=== PATIENT | female | born 1940 | race Hispanic/Latino ===

== ENCOUNTER → 2017-09-11 | Day surgery (SDC) | payer MEDICARE ==
[2017-09-10 11:38] LABS: BASOPHILS % 0.3 % (0.0-1.0); EOSINOPHILS # (AUTO) 0.1 (0.0-0.4); EOSINOPHILS % 1.9 % (0.0-6.0); HEMATOCRIT 37.3 % (34.2-44.1); HEMOGLOBIN 12.3 g/dL (12.0-16.0); LYMPHOCYTES # (AUTO) 2.5 (1.0-3.2); LYMPHOCYTES % 35.9 % (18.0-39.1); MEAN CORPUSCULAR HEMOGLOBIN 31.3 pg (28-32); MEAN CORPUSCULAR VOLUME 94.9 fL (81-99); MONOCYTES # (AUTO) 0.5 (0.2-0.8); MONOCYTES % 7.2 % (4.4-11.3); NEUTROPHILS # (AUTO) 3.8 (2.1-6.9); NEUTROPHILS % 54.6 % (38.7-80.0); PLATELET COUNT 220 x10e3/uL (140-360); RED BLOOD COUNT 3.93 x10e6/uL (3.6-5.1); RED CELL DISTRIBUTION WIDTH 13.3 % (11.7-14.4)
[~2017-09-11] MED LIST: ATENOLOL50 MG PO; CHERATUSSIN AC118 ML PO; FENTANYL CITRATE/PF 100MCG/2 ML INJ ONE; HYOSCYAMINE SULFATE 0.5 MG/ML AMP ONE; JANUVIA100 MG PO; LEVAQUIN500 MG PO; LEVEMIR100 UNIT/1 SQ; LISINOPRIL5 MG PO; LYRICA75 MG PO; MACROBID 100 M100 MG PO; METFORMIN HCL500 M2 PO; MIDAZOLAM HCL 2 MG/2 ML VIAL ONE; NORCO 5-325 TA1 EACH PO; ONDANSETRON HCL INJ 2 MG/ML VIAL ONE; PROAIR HFA INH8.5 GM HHN; PROPOFOL IV EMULSION 10 MG/ML 50 ML VIAL ONE; SIMVASTATIN20 MG PO; TESSALON PERLE100 MG PO; TYLENOL WITH C1 EACH PO; ULTRAM 50MG50 MG PO; ULTRAM50 MG PO; XANAX0.5 MG PO; ZOLOFT25 MG PO
--- NOTE | 2017-09-11 14:54 | Operative Report ---
DATE OF PROCEDURE: September 11, 2017 REFERRING PHYSICIAN: Dr. Caleb Gómez. PROCEDURE PERFORMED: 1. Esophagogastroduodenoscopy with biopsies. 2. Colonoscopy with polypectomy. INDICATIONS FOR ESOPHAGOGASTRODUODENOSCOPY: Upper abdominal pain, exacerbated with meals. INDICATIONS FOR COLONOSCOPY: Colorectal cancer screening, personal history of colon polyps. MEDICATION: Patient was done under MAC. Please see anesthesiologist's note. PROCEDURE: With the patient in the left lateral decubitus position, the flexible fiberoptic Olympus gastroscope was introduced into the esophagus under direct visualization without any difficulty. There was some patchy erythema noted in the distal esophagus. The scope was then advanced with ease into the stomach, and the mucosa overlying the antrum and the body revealed some patchy erythema and low-grade to moderate edema, and biopsies were obtained and sent to stain for H. pylori. Pylorus appeared to be of normal contour and shape, was intubated with ease, and the scope was advanced all the way to the 2nd portion of the duodenum. The scope was then withdrawn slowly. Mucosa overlying the proximal 2nd portion and the duodenal bulb appeared to be within normal limits. The scope was then withdrawn back into the stomach and retroflexed, and the mucosa overlying the fundus and the cardia appeared to be within normal limits. The scope was then straightened out. The scope was subsequently withdrawn. Patient tolerated the procedure well. IMPRESSION: 1. Distal esophagitis. 2. Gastritis biopsied. Biopsies sent to stain for H. pylori. PLAN: Follow up histology. Initiate Protonix 40 mg 1 p.o. q.a.m. a.c. Patient was then turned around and after adequate lubrication of the anal canal, a flexible fiberoptic Olympus colonoscope was inserted into the rectum with ease and advanced all the way to the cecum. It was then withdrawn slowly. Mucosa overlying the cecum appeared to be within normal limits. One polyp was hot biopsied, and polypectomy site was prophylactically hemoclipped in the ascending colon. One polyp was hot biopsied from the transverse colon. Descending grossly appeared to be within normal limits, and then 1 polyp was snared from the sigmoid colon. The scope was then retroflexed into the distal rectum, and the area around the dentate line was examined carefully and appeared to be within normal limits. The scope was then straightened out. It was subsequently withdrawn. Patient tolerated the procedure well. IMPRESSION: 1. Ascending colon polyp hot biopsied, polypectomy site prophylactically hemoclipped. 2. Transverse colon polyp hot biopsied. 3. Sigmoid colon polyp snared. PLAN: Follow up histology. Initiate high-fiber low-fat diet. Initiate high-fiber supplement. Patient might benefit from a followup colonoscopy in 3 to 5 years. Job#: [id number] EV cc:CALEB GÓMEZ MD
== END | disposition home or self-care (01) ==
LOC: OR 10:11
PROVIDERS: ATTEND Internal Medicine Gastroenterology
DX: Z12.11 Encounter for screening for malignant neoplasm of colon (principal); D12.5 Benign neoplasm of sigmoid colon; K29.70 Gastritis, unspecified, without bleeding; K20.9 Esophagitis, unspecified; K59.00 Constipation, unspecified; I10 Essential (primary) hypertension; E11.9 Type 2 diabetes mellitus without complications; Z88.5 Allergy status to narcotic agent; F41.9 Anxiety disorder, unspecified; Z01.810 Encounter for preprocedural cardiovascular examination; Z01.812 Encounter for preprocedural laboratory examination; Z79.84 Long term (current) use of oral hypoglycemic drugs
CPT/HCPCS: 36415 ×2; 43239; 45384; 45385; 82948; 85025; 88305; 88312; 93005; J1980; J2250; J2405; 45378

== ENCOUNTER 2020-06-09 18:17 | Inpatient (IN) | payer MEDICARE ==
[~2020-06-09] VITALS: Ht 165.1 cm; Wt 70.8 kg
[~2020-06-09 18:17] MED LIST changes: -FENTANYL CITRATE/PF 100MCG/2 ML INJ ONE; -HYOSCYAMINE SULFATE 0.5 MG/ML AMP ONE; -MIDAZOLAM HCL 2 MG/2 ML VIAL ONE; -ONDANSETRON HCL INJ 2 MG/ML VIAL ONE; -PROPOFOL IV EMULSION 10 MG/ML 50 ML VIAL ONE
[2020-06-09 19:20] LABS: BASOPHILS % 0.6 % (0.0-1.0); EOSINOPHILS % 0.6 % (0.0-6.0); HEMATOCRIT 30.2 % (34.2-44.1); LYMPHOCYTES # (AUTO) 0.9 (1.0-3.2); LYMPHOCYTES % 25.5 % (18.0-39.1); MEAN CORPUSCULAR HEMOGLOBIN 29.5 pg (28-32); MEAN CORPUSCULAR HGB CONC 33.1 g/dL (31-35); MEAN CORPUSCULAR VOLUME 89.1 fL (81-99); MONOCYTES # (AUTO) 0.2 (0.2-0.8); MONOCYTES % 4.7 % (4.4-11.3); NEUTROPHILS # (AUTO) 2.3 (2.1-6.9); PLATELET COUNT 121 x10e3/uL (140-360); RED BLOOD COUNT 3.39 x10e6/uL (3.6-5.1); RED CELL DISTRIBUTION WIDTH 14.5 % (11.7-14.4)
[2020-06-09 19:34] LABS: ALANINE AMINOTRANSFERASE 42 IU/L (0-55); ALBUMIN 3.2 g/dL (3.5-5.0); ALBUMIN/GLOBULIN RATIO 0.8 (0.8-2.0); ALKALINE PHOSPHATASE 99 IU/L (40-150); ANION GAP 15.3 mmol/L (8-16); BLOOD UREA NITROGEN 9 mg/dL (7-26); BUN/CREATININE RATIO 12 (6-25); CALCIUM 8.7 mg/dL (8.4-10.2); CARBON DIOXIDE 22 mmol/L (22-29); CHLORIDE 105 mmol/L (98-107); CREATINE KINASE 25 IU/L (29-168); CREATININE, SERUM 0.73 mg/dL (0.57-1.11); EST GLOMERULAR FILTRATION RATE > 60 ML/MIN (60-); GLUCOSE 114 mg/dL (74-118); POTASSIUM 3.3 mmol/L (3.5-5.1); SODIUM 139 mmol/L (136-145)
[2020-06-09 20:10] LABS: CLARITY,URINE CLEAR (CLEAR); COLOR,URINE YELLOW (YELLOW); LEUKOCYTE ESTERASE ,URINE NEGATIVE (NEGATIVE); NITRITE,URINE NEGATIVE (NEGATIVE)
[2020-06-09 20:11] LABS: KETONES,URINE TRACE (NEGATIVE); PROTEIN,URINE DIPSTICK 1+ (NEGATIVE); URINE UROBILINOGEN 0.2 mg/dL (0.2 - 1)
[2020-06-09 20:12] LABS: BACTERIA,URINE MODERATE /HPF; CALCIUM OXALATE CRYSTALS,UR MANY (FEW); EPITHELIAL CELLS,URINE MANY /LPF
[2020-06-09] MEDS ORDERED: CEFTRIAXONE SOD 1 GM VIAL IM ONE (21:45)
[2020-06-09] MEDS ORDERED: SODIUM CHLORIDE 0.9% 50ML 50 ML ONE (21:51)
[2020-06-09] MEDS ORDERED: IOPAMIDOL 370 MG/ML 200 ML INFUS..BTL INJ ONE (21:52)
[2020-06-09] MEDS ORDERED: CEFTRIAXONE SOD 1 GM in SODIUM CHLORIDE 0.9% 50ML 50 ML IV ONE (22:00)
[2020-06-09] MEDS ORDERED: CEFTRIAXONE SOD 1 GM/50 ML BAG IV ONE (22:00)
[2020-06-09] MEDS ORDERED: CEFTRIAXONE SOD 1 GM VIAL ONE (22:00)
[2020-06-10] VITALS (8 sets, daily range): BP systolic 142–185; BP diastolic 63–97
[2020-06-10] MEDS ORDERED: DEXTROSE 50% SYRINGE 50 ML IV PRN
[2020-06-10] MEDS: ACETAMINOPHEN 325 MG TAB PO PRN ×5 (03:00→19:32)
[2020-06-10] MEDS: INSULIN REGULAR, HUMAN 100 UNIT/1 ML 3ML VIAL SQ SCH ×4 (07:30→20:31)
[2020-06-10 08:37] LABS: BASOPHILS % 0.2 % (0.0-1.0); HEMATOCRIT 30.5 % (34.2-44.1); HEMOGLOBIN 10.2 g/dL (12.0-16.0); LYMPHOCYTES # (AUTO) 0.9 (1.0-3.2); LYMPHOCYTES % 22.8 % (18.0-39.1); MEAN CORPUSCULAR HEMOGLOBIN 29.9 pg (28-32); MEAN CORPUSCULAR HGB CONC 33.4 g/dL (31-35); MEAN CORPUSCULAR VOLUME 89.4 fL (81-99); MONOCYTES # (AUTO) 0.2 (0.2-0.8); MONOCYTES % 4.4 % (4.4-11.3); NEUTROPHILS % 72.1 % (38.7-80.0); PLATELET COUNT 117 x10e3/uL (140-360); RED BLOOD COUNT 3.41 x10e6/uL (3.6-5.1); RED CELL DISTRIBUTION WIDTH 14.5 % (11.7-14.4)
[2020-06-10 08:47] LABS: ANION GAP 13.4 mmol/L (8-16); BLOOD UREA NITROGEN 8 mg/dL (7-26); BUN/CREATININE RATIO 12 (6-25); CALCIUM 8.6 mg/dL (8.4-10.2); CARBON DIOXIDE 23 mmol/L (22-29); CHLORIDE 104 mmol/L (98-107); CREATININE, SERUM 0.69 mg/dL (0.57-1.11); EST GLOMERULAR FILTRATION RATE > 60 ML/MIN (60-); GLUCOSE 105 mg/dL (74-118); POTASSIUM 3.4 mmol/L (3.5-5.1); SODIUM 137 mmol/L (136-145)
[2020-06-10] MEDS ORDERED: CEFEPIME HCL 1 GM VIAL IV SCH (09:45)
[2020-06-10] MEDS ORDERED: POTASSIUM CHLORIDE 10MEQ EA PO NR (09:45)
[2020-06-10] MEDS: CEFEPIME HCL 1GM 1 GM in SODIUM CHLORIDE 0.9% 50ML 50 ML IV SCH ×2 (10:41→21:35)
[2020-06-10] MEDS: AZITHROMYCIN 500MG/NS 250 ML 250 ML IV SCH (10:41)
[2020-06-10] MEDS ORDERED: SODIUM CHLORIDE 0.9% 250ML 250 ML ONE (10:48)
[2020-06-10] MEDS: SITAGLIPTIN 100 MG TAB PO SCH (11:26)
[2020-06-10] MEDS: ALPRAZOLAM 0.5 MG TAB PO PRN ×2 (12:35→19:25)
[2020-06-10] MEDS: HYDROCODONE/APAP 5MG-325MG TAB PO PRN (15:15)
[2020-06-10] MEDS: ENOXAPARIN SOD INJ 40 MG/0.4 ML SYR SC SCH (17:10)
[2020-06-10] MEDS: LISINOPRIL 2.5 MG TAB PO SCH (21:35)
[2020-06-11] VITALS (8 sets, daily range): BP systolic 122–146; BP diastolic 62–76
[2020-06-11] MEDS: ACETAMINOPHEN 325 MG TAB PO PRN ×2 (01:41→17:12)
[2020-06-11] MEDS: ALPRAZOLAM 0.5 MG TAB PO PRN ×2 (01:41→16:03)
[2020-06-11 05:57] LABS: BASOPHILS % 0.3 % (0.0-1.0); HEMATOCRIT 31.2 % (34.2-44.1); HEMOGLOBIN 10.5 g/dL (12.0-16.0); LYMPHOCYTES # (AUTO) 1.2 (1.0-3.2); LYMPHOCYTES % 30.9 % (18.0-39.1); MEAN CORPUSCULAR HEMOGLOBIN 29.8 pg (28-32); MEAN CORPUSCULAR HGB CONC 33.7 g/dL (31-35); MEAN CORPUSCULAR VOLUME 88.6 fL (81-99); MONOCYTES # (AUTO) 0.2 (0.2-0.8); MONOCYTES % 4.5 % (4.4-11.3); NEUTROPHILS # (AUTO) 2.5 (2.1-6.9); NEUTROPHILS % 63.5 % (38.7-80.0); PLATELET COUNT 110 x10e3/uL (140-360); RED BLOOD COUNT 3.52 x10e6/uL (3.6-5.1); RED CELL DISTRIBUTION WIDTH 14.5 % (11.7-14.4)
[2020-06-11 06:07] LABS: ANION GAP 13.3 mmol/L (8-16); BLOOD UREA NITROGEN 10 mg/dL (7-26); BUN/CREATININE RATIO 14 (6-25); CALCIUM 8.5 mg/dL (8.4-10.2); CARBON DIOXIDE 25 mmol/L (22-29); CHLORIDE 102 mmol/L (98-107); CREATININE, SERUM 0.72 mg/dL (0.57-1.11); EST GLOMERULAR FILTRATION RATE > 60 ML/MIN (60-); GLUCOSE 96 mg/dL (74-118); POTASSIUM 3.3 mmol/L (3.5-5.1); SODIUM 137 mmol/L (136-145)
[2020-06-11 06:38] LABS: MAGNESIUM 1.6 MG/DL (1.3-2.1); PHOSPHORUS 2.8 MG/DL (2.3-4.7)
[2020-06-11] MEDS: HYDROCODONE/APAP 5MG-325MG TAB PO PRN ×3 (06:57→20:57)
[2020-06-11] MEDS: INSULIN REGULAR, HUMAN 100 UNIT/1 ML 3ML VIAL SQ SCH ×4 (07:30→20:56)
[2020-06-11] MEDS: AZITHROMYCIN 500MG/NS 250 ML 250 ML IV SCH (09:15)
[2020-06-11] MEDS: SITAGLIPTIN 100 MG TAB PO SCH (09:15)
[2020-06-11] MEDS ORDERED: POTASSIUM CHLORIDE 10MEQ EA PO ONE (09:50)
[2020-06-11] MEDS: MEROPENEM 1GM 100 ML IV SCH ×2 (10:33→20:24)
[2020-06-11 11:31] LABS: PLATELET ESTIMATE MODERATELY DECREASED; PLATELET MORPHOLOGY COMMENT NORMAL
[2020-06-11] MEDS: ENOXAPARIN SOD INJ 40 MG/0.4 ML SYR SC SCH (16:03)
[2020-06-11] MEDS: LISINOPRIL 2.5 MG TAB PO SCH (20:56)
[2020-06-12] VITALS (8 sets, daily range): BP systolic 103–140; BP diastolic 58–83
[2020-06-12] MEDS: ACETAMINOPHEN 325 MG TAB PO PRN ×2 (00:48→15:17)
[2020-06-12] MEDS: ALPRAZOLAM 0.5 MG TAB PO PRN (01:10)
[2020-06-12] MEDS: HYDROCODONE/APAP 5MG-325MG TAB PO PRN ×3 (06:23→21:19)
[2020-06-12 06:38] LABS: BASOPHILS % 0.7 % (0.0-1.0); EOSINOPHILS % 0.5 % (0.0-6.0); HEMATOCRIT 32.7 % (34.2-44.1); LYMPHOCYTES # (AUTO) 1.5 (1.0-3.2); LYMPHOCYTES % 35.3 % (18.0-39.1); MEAN CORPUSCULAR HEMOGLOBIN 30.3 pg (28-32); MEAN CORPUSCULAR HGB CONC 33.6 g/dL (31-35); MEAN CORPUSCULAR VOLUME 90.1 fL (81-99); MONOCYTES # (AUTO) 0.2 (0.2-0.8); MONOCYTES % 5.1 % (4.4-11.3); NEUTROPHILS # (AUTO) 2.4 (2.1-6.9); NEUTROPHILS % 57.9 % (38.7-80.0); PLATELET COUNT 124 x10e3/uL (140-360); RED BLOOD COUNT 3.63 x10e6/uL (3.6-5.1); RED CELL DISTRIBUTION WIDTH 14.5 % (11.7-14.4)
[2020-06-12 06:58] LABS: ANION GAP 14.7 mmol/L (8-16); BLOOD UREA NITROGEN 12 mg/dL (7-26); BUN/CREATININE RATIO 18 (6-25); CALCIUM 8.9 mg/dL (8.4-10.2); CARBON DIOXIDE 25 mmol/L (22-29); CHLORIDE 105 mmol/L (98-107); CREATININE, SERUM 0.67 mg/dL (0.57-1.11); EST GLOMERULAR FILTRATION RATE > 60 ML/MIN (60-); GLUCOSE 92 mg/dL (74-118); POTASSIUM 3.7 mmol/L (3.5-5.1); SODIUM 141 mmol/L (136-145)
[2020-06-12] MEDS: INSULIN REGULAR, HUMAN 100 UNIT/1 ML 3ML VIAL SQ SCH ×4 (07:30→21:00)
[2020-06-12] MEDS: SITAGLIPTIN 100 MG TAB PO SCH (09:39)
[2020-06-12] MEDS: MEROPENEM 1GM 100 ML IV SCH ×2 (09:39→21:11)
[2020-06-12 09:47] LABS: BAND NEUTROPHILS % (MANUAL) 2 %; EOSINOPHILS % (MANUAL) 2 % (0-7); LYMPHOCYTES % (MANUAL) 29 % (19-48); MONOCYTES % (MANUAL) 3 % (3.4-9.0); NEUTROPHILS % (MANUAL) 63 % (40-74); PLATELET ESTIMATE SLIGHTLY DECREASED; PLATELET MORPHOLOGY COMMENT NORMAL; RBC MORPHOLOGY COMMENT NORMAL
[2020-06-12] MEDS: AZITHROMYCIN 500MG/NS 250 ML 250 ML IV SCH (11:07)
[2020-06-12] MEDS: ENOXAPARIN SOD INJ 40 MG/0.4 ML SYR SC SCH (17:29)
[2020-06-12] MEDS: LISINOPRIL 2.5 MG TAB PO SCH (21:11)
[2020-06-13] VITALS (8 sets, daily range): BP systolic 114–132; BP diastolic 60–79
[2020-06-13] MEDS: HYDROCODONE/APAP 5MG-325MG TAB PO PRN ×5 (04:31→23:59)
[2020-06-13] MEDS: INSULIN REGULAR, HUMAN 100 UNIT/1 ML 3ML VIAL SQ SCH ×4 (07:30→20:05)
[2020-06-13] MEDS: SITAGLIPTIN 100 MG TAB PO SCH (10:02)
[2020-06-13] MEDS: MEROPENEM 1GM 100 ML IV SCH (10:10)
[2020-06-13] MEDS: AZITHROMYCIN 500MG/NS 250 ML 250 ML IV SCH (11:54)
[2020-06-13] MEDS ORDERED: LEVOFLOXACIN 500 MG TAB PO SCH (14:00)
[2020-06-13] MEDS: DOXYCYCLINE HYCLATE TABLET 100 MG TAB PO SCH (14:40)
[2020-06-13] MEDS: ACETAMINOPHEN 325 MG TAB PO PRN (15:14)
[2020-06-13] MEDS: ENOXAPARIN SOD INJ 40 MG/0.4 ML SYR SC SCH (17:26)
[2020-06-13] MEDS: LISINOPRIL 2.5 MG TAB PO SCH (20:06)
[2020-06-14] VITALS: BP 126/76
[2020-06-14 04:00] VITALS: BP 123/64
[2020-06-14] MEDS: HYDROCODONE/APAP 5MG-325MG TAB PO PRN (06:38)
[2020-06-14] MEDS: INSULIN REGULAR, HUMAN 100 UNIT/1 ML 3ML VIAL SQ SCH (07:30)
[2020-06-14 08:10] VITALS: BP 148/68
[2020-06-14] MEDS: SITAGLIPTIN 100 MG TAB PO SCH (09:36)
[2020-06-14] MEDS: DOXYCYCLINE HYCLATE TABLET 100 MG TAB PO SCH (09:36)
[2020-06-14 09:51] VITALS: BP 148/68
== END 2020-06-14 11:05 | disposition home or self-care (01) | DRG 871 ==
LOC: ER 18:50 → ERHOLD 22:53 → MED/SURG3 06-10 00:40
PROVIDERS: ADMIT Internal Medicine; ATTEND Internal Medicine
DX: A41.9 Sepsis, unspecified organism (principal); J18.9 Pneumonia, unspecified organism; N39.0 Urinary tract infection, site not specified; D61.818 Other pancytopenia; E11.9 Type 2 diabetes mellitus without complications; I10 Essential (primary) hypertension; K76.89 Other specified diseases of liver; D69.6 Thrombocytopenia, unspecified; D70.9 Neutropenia, unspecified; M50.31 Other cervical disc degeneration, high cervical region; M48.02 Spinal stenosis, cervical region; Z20.822 Contact with and (suspected) exposure to COVID-19
CPT/HCPCS: 36415; 71045; 71260; 72141; 74177; 80048; 80053; 81001; 82550; 82553; 82948; 83036; 83605; 83735; 84100; 84443; 84484; 85025; 85651; 86039; 86140; 86644; 86645; 86663; 86664; 86665; 87040; 87086; 87400; 87449; 93306; 99284; J0456; J0692; J0696; J1650; J7050; Q9967; U0002

== ENCOUNTER → 2021-03-28 | Day surgery (SDC) | payer MEDICARE ==
[2021-03-26 11:30] LABS: BASOPHILS # (AUTO) 0.1 (0.0-0.1); BASOPHILS % 1.7 % (0.0-1.0); HEMOGLOBIN 8.3 g/dL (12.0-16.0); LYMPHOCYTES # (AUTO) 2.6 (1.0-3.2); LYMPHOCYTES % 86.7 % (18.0-39.1); MEAN CORPUSCULAR HGB CONC 28.6 g/dL (31-35); MEAN CORPUSCULAR VOLUME 83.8 fL (81-99); MONOCYTES # (AUTO) 0.1 (0.2-0.8); MONOCYTES % 4.8 % (4.4-11.3); NEUTROPHILS # (AUTO) 0.2 (2.1-6.9); NEUTROPHILS % 6.8 % (38.7-80.0); PLATELET COUNT 69 x10e3/uL (140-360); RED BLOOD COUNT 3.46 x10e6/uL (3.6-5.1); RED CELL DISTRIBUTION WIDTH 32.5 % (11.7-14.4)
[2021-03-26 12:45] LABS: EOSINOPHILS % (MANUAL) 1 % (0-7); LYMPHOCYTES % (MANUAL) 84 % (19-48); METAMYELOCYTES % (MANUAL) 4 % (0-0); MONOCYTES % (MANUAL) 1 % (3.4-9.0); NEUTROPHILS % (MANUAL) 3 % (40-74); NUCLEATED RED BLOOD CELLS 2
[2021-03-26 12:47] LABS: ANISOCYTOSIS MARKED; HYPOCHROMASIA MODERATE; MICROCYTOSIS MODERATE; PLATELET ESTIMATE MARKEDLY DECREASED; PLATELET MORPHOLOGY COMMENT NORMAL; RBC MORPHOLOGY COMMENT ABNORMAL; SCHISTOCYTES RARE
[2021-03-26 12:48] LABS: ELLIPTOCYTE, RBC SLIGHT; POIKILOCYTOSIS MODERATE
[~2021-03-28] MED LIST changes: +FENTANYL CITRATE/PF 100MCG/2 ML INJ ONE; +FEROSUL325 MG PO; +HYOSCYAMINE SULFATE 0.5 MG/ML INJ ONE; +LIDOCAINE HCL 2% LOCAL INJ 5 ML SDV VIAL INJ ONE; +PROPOFOL IV EMULSION 10 MG/ML 20 ML VIAL ONE
[2021-03-28 08:57] VITALS: BP 116/60
== END | disposition home or self-care (01) ==
LOC: OR 07:03
PROVIDERS: ATTEND Internal Medicine Gastroenterology
DX: K59.00 Constipation, unspecified (principal); K63.5 Polyp of colon; K64.8 Other hemorrhoids; K21.9 Gastro-esophageal reflux disease without esophagitis; N39.0 Urinary tract infection, site not specified; I10 Essential (primary) hypertension; M19.90 Unspecified osteoarthritis, unspecified site; M54.9 Dorsalgia, unspecified; Z88.6 Allergy status to analgesic agent; Z01.810 Encounter for preprocedural cardiovascular examination; Z01.812 Encounter for preprocedural laboratory examination; Z20.822 Contact with and (suspected) exposure to COVID-19; Z79.84 Long term (current) use of oral hypoglycemic drugs; Z79.899 Other long term (current) drug therapy; Z87.891 Personal history of nicotine dependence
CPT/HCPCS: 36415 ×2; 45384; 82948; 85025; 93005; J1980; J2001; J2704; J3010; U0002; 45378

== ENCOUNTER 2021-04-13 11:12 | Emergency (ER) | payer MEDICARE ==
[~2021-04-13] VITALS: Ht 165.1 cm; Wt 70.8 kg
[~2021-04-13 11:12] MED LIST changes: -FENTANYL CITRATE/PF 100MCG/2 ML INJ ONE; -HYOSCYAMINE SULFATE 0.5 MG/ML INJ ONE; -LIDOCAINE HCL 2% LOCAL INJ 5 ML SDV VIAL INJ ONE; -PROPOFOL IV EMULSION 10 MG/ML 20 ML VIAL ONE
== END 2021-04-13 11:35 | disposition home or self-care (01) ==
LOC: ER 11:15
DX: K62.89 Other specified diseases of anus and rectum (principal); K64.9 Unspecified hemorrhoids; I10 Essential (primary) hypertension; E11.9 Type 2 diabetes mellitus without complications; E78.5 Hyperlipidemia, unspecified; E78.00 Pure hypercholesterolemia, unspecified; F41.9 Anxiety disorder, unspecified
CPT/HCPCS: 99283